=== PATIENT | female | born 1990 | race Caucasian/White ===

== ENCOUNTER 2016-07-17 | Emergency (ER) | payer MEDICAID | END 2016-07-17 01:57 | disposition home or self-care (01) ==

== ENCOUNTER 2021-12-09 11:41 | Outpatient (CLI) | payer MEDICAID | END 2021-12-09 11:42 | disposition home or self-care (01) | LOC: LAB 11:41 | PROVIDERS: ATTEND Nurse Practitioner Obstetrics & Gynecology | DX: N91.2 Amenorrhea, unspecified (principal) | CPT/HCPCS: 36415; 84702 ==

== ENCOUNTER 2021-12-15 18:06 | Outpatient (CLI) | payer MEDICAID | END 2021-12-15 18:07 | disposition home or self-care (01) | LOC: LAB 18:06 | PROVIDERS: ATTEND Nurse Practitioner Obstetrics & Gynecology | DX: N91.2 Amenorrhea, unspecified (principal) | CPT/HCPCS: 36415; 84702 ==

== ENCOUNTER 2021-12-18 17:23 | Outpatient (CLI) | payer MEDICAID, OTHER | END 2021-12-18 17:24 | disposition home or self-care (01) | LOC: LAB 17:23 | PROVIDERS: ATTEND Nurse Practitioner Obstetrics & Gynecology | DX: O02.1 Missed abortion (principal) | CPT/HCPCS: 36415; 84702; 86850; 86900; 86901 ==

== ENCOUNTER 2022-01-28 14:58 | Outpatient (CLI) | payer OTHER | END 2022-01-28 14:59 | disposition home or self-care (01) | LOC: LAB 14:58 | PROVIDERS: ATTEND Nurse Practitioner Obstetrics & Gynecology | DX: O02.1 Missed abortion (principal) | CPT/HCPCS: 36415; 84702 ==

== ENCOUNTER 2022-08-05 12:15 | Outpatient (CLI) | payer OTHER | END 2022-08-05 12:16 | disposition home or self-care (01) | LOC: LAB 12:15 | PROVIDERS: ATTEND Nurse Practitioner Obstetrics & Gynecology | DX: N96 Recurrent pregnancy loss (principal) | CPT/HCPCS: 36415; 84702 ==

== ENCOUNTER 2022-08-08 15:45 | Outpatient (CLI) | payer OTHER | END 2022-08-08 15:46 | disposition home or self-care (01) | LOC: LAB 15:45 | PROVIDERS: ATTEND Nurse Practitioner Obstetrics & Gynecology | DX: N96 Recurrent pregnancy loss (principal) | CPT/HCPCS: 36415; 84702 ==

== ENCOUNTER 2022-08-24 11:33 | Outpatient (CLI) | payer OTHER ==
[2022-08-25 06:10] LABS: HBsAG SCREEN Negative (Negative)
[2022-08-25 07:09] LABS: RPR Non Reactive (Non Reactive); VARICELLA-ZOSTER AB IGG 1233 index (Immune >165)
[2022-08-26 00:07] LABS: HCV AB Non Reactive (Non Reactive); HIV SCREEN 4TH GENERATION Non Reactive (Non Reactive)
== END 2022-08-24 11:34 | disposition home or self-care (01) ==
LOC: LAB 11:33
PROVIDERS: ATTEND Nurse Practitioner Obstetrics & Gynecology
DX: Z36.89 Encounter for other specified antenatal screening (principal)
CPT/HCPCS: 36415; 85025; 86592; 86762; 86787; 86803; 86850; 86900; 86901; 87340; 87389

== ENCOUNTER 2022-08-27 12:05 | Outpatient (CLI) | payer OTHER ==
[2022-08-27 12:16] LABS: BASOPHILS % (AUTO) 0.5 %; EOSINOPHILS # (AUTO) 0.1 10^3/uL (0.0-0.7); EOSINOPHILS % (AUTO) 0.9 %; HCT - HEMATOCRIT 40.3 % (37.0-47.0); HGB - HEMOGLOBIN 13.5 g/dL (12.0-16.0); LYMPHOCYTES # (AUTO) 1.8 10^3/uL (1.5-3.5); LYMPHOCYTES % (AUTO) 27.1 %; MEAN CORPUSCULAR HEMOGLOBIN 31.2 pg (27.0-31.0); MEAN CORPUSCULAR HGB CONC 33.5 g/dL (32.0-36.0); MEAN CORPUSCULAR VOLUME 93.1 fL (81.0-99.0); MEAN PLATELET VOLUME 9.6 fL (7.9-10.8); MONOCYTES # (AUTO) 0.4 10^3/uL (0.0-1.0); MONOCYTES % (AUTO) 6.7 %; NEUTROPHILS # (AUTO) 4.2 10^3/uL (1.5-6.6); NEUTROPHILS % (AUTO) 64.3 %; PLT - PLATELET COUNT 251 10^3/uL (130-450); RED BLOOD COUNT 4.33 10^6/uL (4.20-5.40); RED CELL DISTRIBUTION WIDTH 11.9 % (12.0-15.0); WHITE BLOOD COUNT 6.5 x10^3/uL (4.8-10.8)
== END 2022-08-27 12:06 | disposition home or self-care (01) ==
LOC: LAB 12:05
PROVIDERS: ATTEND Nurse Practitioner Obstetrics & Gynecology
DX: Z36.89 Encounter for other specified antenatal screening (principal)
CPT/HCPCS: 36415; 85025; 86850; 86900; 86901

== ENCOUNTER 2022-09-21 16:48 | Outpatient (CLI) | payer OTHER | END 2022-09-21 16:49 | disposition home or self-care (01) | LOC: LAB 16:48 | PROVIDERS: ATTEND Nurse Practitioner Obstetrics & Gynecology | DX: Z13.79 Encounter for other screening for genetic and chromosomal anomalies (principal) | CPT/HCPCS: 36415 ==

== ENCOUNTER 2022-11-11 20:56 | Outpatient (CLI) | payer OTHER ==
--- NOTE | 2022-11-12 10:44 | Ultrasound Report ---
PROCEDURE: OB Detailed Eval INDICATIONS: SUPERVISION OF OUTSIDE/PRIOR DATING DATA: Last menstrual period (LMP): 06/24/2022. LMP-based estimated date of delivery (ARNAV): 03/31/2023. First dating scan (date and location): 08/24/2022. Estimated date of delivery (ARNAV) from first dating scan: 04/04/2023. The below data below was generated using the ultrasound ARNAV of 04/04/2023 TECHNIQUE: Real-time scanning was performed of the fetus, with image documentation and biometric measurements. Endovaginal scanning: Not performed COMPARISON: None. FINDINGS: General: A single living intrauterine gestation is present. Presentation: Vertex Placenta: Placental position is posterior, without previa. Amniotic fluid index: 11.2 cm, within normal limits for gestational age. heart rate: 143 beats per minute. Maternal cervical canal is closed. biometrics: Biparietal diameter: 4.37 cm, 19 weeks 2 days Head circumference: 16.98 cm, 19 weeks 4 days Abdominal circumference: 14.66 cm, 20 weeks Femur length: 3.0 cm, 19 weeks 3 days Estimated gestational age from initial scan: 19 weeks 3 days Composite gestational age from present scan: 19 weeks 3 days Estimated weight and percentile: 305 g, 59th percentile Measurement variability in biometric dating: +/- 10 days from 12-20 weeks gestation, +/- 2 weeks from 20-30 weeks gestation, +/- 3 weeks at 30 weeks gestation or later. Anatomic survey: Neuro: Ventricles are normal at less than 10 mm. Cisterna magna is normal at 3-11 mm. Cerebellum i s normal in size and morphology. Nuchal skin fold: Normal at less than 6 mm between 14 and 20 weeks gestational age. Face: Nose and lips, facial profile are normal. Spine: No evidence for spina bifida. Heart: Not well visualized. Diaphragm: Diaphragm is intact. Stomach: Left-sided stomach is present. Kidneys: No hydronephrosis. Normal is less than 5 mm in 2nd trimester, less than 7 mm in 3rd trimester. Cord: 3 vessel cord has orthotopic insertion. Bladder: Normal in size. Extremities: All 4 extremities are visualized. IMPRESSION: Single living intrauterine at 19 weeks 3 days, ARNAV of 04/04/2023. Estimated weight is 305 g, 59th percentile. The 4-channel view and outflow tract of the heart are not well demonstrated. Consider repeat examinat ion. Otherwise, normal anatomy survey. Reviewed by: Felipe Hamilton on 11/12/2022 10:43 AM PDT Approved by: Felipe Hamilton on 11/12/2022 10:43 AM PDT Station ID: [id number]
== END 2022-11-11 20:57 | disposition home or self-care (01) ==
LOC: DI 20:56
PROVIDERS: ATTEND Nurse Practitioner Obstetrics & Gynecology
DX: Z34.02 Encounter for supervision of normal first pregnancy, second trimester (principal); Z36.89 Encounter for other specified antenatal screening

== ENCOUNTER 2022-11-19 12:22 | Outpatient (CLI) | payer OTHER ==
--- NOTE | 2022-11-19 14:39 | Ultrasound Report ---
PROCEDURE: OB F/U or Repeat INDICATIONS: SUPERVISION OF OUTSIDE/PRIOR DATING DATA: Last menstrual period (LMP): 06/24/2022. LMP-based estimated date of delivery (ARNAV): 03/31/2023. First dating scan (date and location): 08/24/2022. Estimated date of delivery (ARNAV) from first dating scan: 04/04/2023. The below data below was generated using the ultrasound ARNAV of 04/04/2023 TECHNIQUE: Real-time scanning was performed of the fetus, with image documentation. Endovaginal scanning: Not performed. COMPARISON: OB ultrasound 11/11/2022. FINDINGS: General: A single living intrauterine gestation is present. Presentation: Breech variable Placenta: Placental position is posterior, without previa. Amniotic fluid index: 10.4 cm, within normal limits for gestational age. Largest pocket 2.8 cm. heart rate: 135 beats per minute. Maternal cervical canal: 2.9 cm long; normal length is 2.5 cm or more. Estimated gestational age from prior datin weeks 4 days Other: Four-chamber view of the heart and outflow tracts are normal in appearance. IMPRESSION: 1. Benson living intrauterine at 20 weeks 4 days based on prior dating. 2. Normal placenta and amniotic fluid. 3. Normal heart views. Reviewed by: Mina Delgado MD on 11/19/2022 2:38 PM PDT Approved by: Mina Delgado MD on 11/19/2022 2:38 PM PDT Station ID: [id number]
== END 2022-11-19 12:23 | disposition home or self-care (01) ==
LOC: DI 12:22
PROVIDERS: ATTEND Nurse Practitioner Obstetrics & Gynecology
DX: Z34.90 Encounter for supervision of normal pregnancy, unspecified, unspecified trimester (principal); Z36.89 Encounter for other specified antenatal screening

== ENCOUNTER 2022-12-30 13:57 | Outpatient (CLI) | payer OTHER ==
[2022-12-30 15:05] LABS: HCT - HEMATOCRIT 36.2 % (37.0-47.0); HGB - HEMOGLOBIN 11.9 g/dL (12.0-16.0); MEAN CORPUSCULAR HEMOGLOBIN 30.4 pg (27.0-31.0); MEAN CORPUSCULAR HGB CONC 32.9 g/dL (32.0-36.0); MEAN CORPUSCULAR VOLUME 92.6 fL (81.0-99.0); MEAN PLATELET VOLUME 8.9 fL (7.9-10.8); RED BLOOD COUNT 3.91 10^6/uL (4.20-5.40); RED CELL DISTRIBUTION WIDTH 13.2 % (12.0-15.0); WHITE BLOOD COUNT 6.6 x10^3/uL (4.8-10.8)
== END 2022-12-30 13:58 | disposition home or self-care (01) ==
LOC: LAB 13:57
PROVIDERS: ATTEND Nurse Practitioner Obstetrics & Gynecology
DX: Z36.9 Encounter for antenatal screening, unspecified (principal)
CPT/HCPCS: 36415; 82950; 85027

== ENCOUNTER 2023-04-01 14:19 | Inpatient (IN) | payer OTHER ==
[2023-04-01] MEDS ORDERED: AMPICILLIN 2 GM in SODIUM CHLORIDE 0.9% MINIBAG 100 ML IV ONE (14:39)
[2023-04-01] MEDS ORDERED: LACTATED RINGERS 500 ML IV ONE (14:39)
[2023-04-01] MEDS ORDERED: miSOPROStoL 200 MCG TABLET BC PRN (14:39)
[2023-04-01] MEDS ORDERED: OXYTOCIN 10 UNIT/ML VIAL IM PRN (14:39)
[2023-04-01] MEDS ORDERED: TERBUTALINE 1 MG/ML VIAL SUBQ PRN (14:39)
[2023-04-01] MEDS ORDERED: CARBOPROST TROMETHAMINE 250 MCG/ML AMP IM PRN (14:39)
[2023-04-01] MEDS ORDERED: METHYLERGONOVINE 0.2 MG/ML VIAL IM PRN (14:39)
[2023-04-01] MEDS ORDERED: LABETALOL 20 MG/4 ML SYRINGE IVP PRN ×3 (14:39)
[2023-04-01] MEDS ORDERED: LACTATED RINGERS 1,000 ML IV PRN (14:39)
[2023-04-01] MEDS ORDERED: TRANEXAMIC ACID IN NACL 1,000 MG/100 ML BAG IV PRN (14:39)
[2023-04-01] MEDS ORDERED: NIFEdipine 10 MG CAPSULE PO PRN (14:39)
[2023-04-01] MEDS ORDERED: hydrALAZINE INJ 20 MG/ML VIAL IVP PRN ×2 (14:39)
[2023-04-01] MEDS ORDERED: miSOPROStoL 200 MCG TABLET PR PRN (14:39)
[2023-04-01] MEDS ORDERED: SODIUM CHLORIDE FLUSH 0.9% 10 ML SYRINGE IVP PRN (14:39)
[2023-04-01] MEDS: LACTATED RINGERS 1,000 ML IV SCH (14:49)
[2023-04-01] MEDS ORDERED: AMPICILLIN 2 GM VIAL IV ONE (14:57)
[2023-04-01 15:06] LABS: BASOPHILS % (AUTO) 0.3 %; EOSINOPHILS % (AUTO) 0.2 %; HCT - HEMATOCRIT 43.7 % (37.0-47.0); HGB - HEMOGLOBIN 14.4 g/dL (12.0-16.0); LYMPHOCYTES # (AUTO) 1.5 10^3/uL (1.5-3.5); LYMPHOCYTES % (AUTO) 15.3 %; MEAN CORPUSCULAR HEMOGLOBIN 29.9 pg (27.0-31.0); MEAN CORPUSCULAR VOLUME 90.9 fL (81.0-99.0); MEAN PLATELET VOLUME 9.4 fL (7.9-10.8); MONOCYTES # (AUTO) 0.5 10^3/uL (0.0-1.0); MONOCYTES % (AUTO) 4.8 %; NEUTROPHILS # (AUTO) 7.9 10^3/uL (1.5-6.6); NEUTROPHILS % (AUTO) 78.7 %; PLT - PLATELET COUNT 253 10^3/uL (130-450); RED BLOOD COUNT 4.81 10^6/uL (4.20-5.40); RED CELL DISTRIBUTION WIDTH 13.7 % (12.0-15.0)
--- NOTE | 2023-04-01 15:40 | ANESTHESIA ---
Pre-Anesthesia VS, & Labs - Diagnosis IUP - Procedure labor epidural Vital Signs: Temp Pulse Resp BP Pulse Ox O2 Flow Rate 36.8 C 89 17 138/74 H 04/01/23 15:07 04/01/23 15:07 04/01/23 15:07 04/01/23 15:07 Height: 5 ft 6 in Weight (kg): 78.018 kg Body Mass Index: 27.7 BMI Classification: Overweight - Is Patient ?: Yes - Lab Results Current Lab Results: Laboratory Tests 04/01/23 14:45: WBC 10.0, RBC 4.81, Hgb 14.4, Hct 43.7, MCV 90.9, MCH 29.9, MCHC 33.0, RDW 13.7, Plt Count 253, MPV 9.4, Neut # (Auto) 7.9 H, Lymph # (Auto) 1.5, [place] # (Auto) 0.5, Eos # (Auto) 0.0, Baso # (Auto) 0.0, Absolute Nucleated RBC 0.00, Nucleated RBC % 0.0 Lab results reviewed: Yes Fish Bones: 04/01/23 14:45 Home Medications and Allergies Active Medications Carboprost Tromethamine (Carboprost Tromethamine 250 Mcg/Ml Amp) 250 mcg IM .ONCE PRN PRN Reason: Hemorrhage Fentanyl (Fentanyl 100 Mcg/2 Ml Vial) 50 mcg IVP Q1H PRN PRN Reason: Severe Pain (score 7-10) Hydralazine HCl (Hydralazine Inj 20 Mg/Ml Vial) 5 - 10 mg IVP Q20M PRN; Protocol PRN Reason: SBP> or= 160 OR DBP> or= 110 Hydralazine HCl (Hydralazine Inj 20 Mg/Ml Vial) 10 mg IVP .ONCE PRN; Protocol PRN Reason: SBP> or= 160 OR DBP> or= 110 Lactated Ringer's (Lr) 500 mls @ 999 mls/hr IV PRN PRN PRN Reason: distress Oxytocin/Sodium Chloride (Pitocin/Sodium Chloride) 500 mls @ 999 mls/hr IV PRN PRN; Protocol PRN Reason: POST- HEMORR PREVENTION Tranexamic Acid (Tranexamic 1,000 Mg/100ml-Nacl) 1,000 mg in 100 mls @ 600 mls/hr IV Q30M PRN PRN Reason: EBL >1200mL and within 3hr Lactated Ringer's (Lr) 1,000 mls @ 125 mls/hr IV .Q8H [facility] Last Admin: 04/01/23 14:49 Dose: 125 mls/hr Ampicillin Sodium 1 gm/ Sodium (Chloride) 100 mls @ 200 mls/hr IV Q4H [facility] Labetalol HCl (Labetalol 20 Mg/4 Ml Syringe) 20 - 80 mg IVP Q10M PRN; Protocol PRN Reason: SBP> or= 160 OR DBP> or= 110 Labetalol HCl (Labetalol 20 Mg/4 Ml Syringe) 20 mg IVP .ONCE PRN; Protocol PRN Reason: SBP> or= 160 OR DBP> or= 110 Labetalol HCl (Labetalol 20 Mg/4 Ml Syringe) 20 - 40 mg IVP Q10M PRN; Protocol PRN Reason: SBP> or= 160 OR DBP> or= 110 Lidocaine HCl (Lidocaine 1% 20 Ml Mdv) 20 ml ID .ONCE PRN PRN Reason: PERINEAL REPAIR Stop: 04/04/23 14:39 Methylergonovine Maleate (Methylergonovine 0.2 Mg/Ml Vial) 0.2 mg IM .ONCE PRN PRN Reason: Hemorrhage Misoprostol (Misoprostol 200 Mcg Tablet) 600 mcg BC .ONCE PRN PRN Reason: Hemorrhage Misoprostol (Misoprostol 200 Mcg Tablet) 800 mcg [place] .ONCE PRN PRN Reason: Hemorrhage Nifedipine (Nifedipine 10 Mg Capsule) 10 - 20 mg PO Q20M PRN; Protocol PRN Reason: SBP> or= 160 OR DBP> or= 110 Oxytocin (Oxytocin 10 Unit/Ml Vial) 10 unit IM .ONCE PRN PRN Reason: Step One if no IV access. Sodium Chloride (Sodium Chloride Flush 0.9% 10 Ml Syringe) 10 ml IVP PRN PRN PRN Reason: NEEDED PER PROVIDER ORDERS Sodium Chloride (Sodium Chloride Flush 0.9% 10 Ml Syringe) 10 ml IVP Q8H RISHI Sodium Chloride (Sodium Chloride Flush 0.9% 10 Ml Syringe) 10 ml IVP PRN PRN PRN Reason: NEEDED PER PROVIDER ORDERS Terbutaline Sulfate (Terbutaline 1 Mg/Ml Vial) 0.25 mg SUBQ .ONCE PRN PRN Reason: Tachystole Allergies/Adverse Reactions: Allergies Allergy/AdvReac Type Severity Reaction Status Date / Time No Known Drug Allergies Allergy Verified 07/17/16 01:12 Anes History & Medical History - Anesthetic History Anesthesia Complications: reports: No previous complications Family history of Anesthesia Complications: Denies Family history of Malignant Hyperthermia: Denies - Medical History Cardiovascular: reports: None Pulmonary: reports: None Gastrointestinal: reports: GERD (regular tums use w/ third trimester) Urinary: reports: None Neuro: reports: None Musculoskeletal: reports: None Endocrine/Autoimmune: reports: None Blood Disorders: reports: None Skin: reports: None Smoking Status: Never smoker Psychosocial: reports: No issues indicated Exam General: Alert, Oriented x3, Cooperative Dental: WNL Mouth Openin Fingerbreadth Neck Mobility: Normal Mallampati classification: II Thyromental Distance: 4-6 cm Respiratory: Lungs clear Cardiovascular: Regular rate Plan Anesthesia Type: Epidural Consent for Procedure(s) Verified and Reviewed: Yes Code Status: Attempt Resuscitation ASA classification: 2-Mild systemic disease Is this case an emergency?: No
--- NOTE | 2023-04-01 16:39 | HISTORY & PHYSICAL EXAMINATION ---
Admit History - Visit Reason Visit Reason: Contractions - : 4 Parity: 0 Premature: 0 Ectopic: 0 : 3 Care: positive: [facility] Risk/History: positive: None Complications This : positive: None Smoking Status: Never smoker - Mother's Labs Mother's Blood Type: positive: O Mother's RH: positive: Positive GBS: positive: Group B Strep Positive Rubella Status: positive: Immune - HPI Diagnosis/Indication for NST: Other Current EDU 03/31/23 Gestation 40 Weeks and 1 Days 4 Para 0 Vital Signs Temperature 36.8 C 04/01/23 15:07 Heart Rate 89 04/01/23 15:07 Respiratory Rate 17 04/01/23 15:07 Blood Pressure 138/74 H 04/01/23 15:07 Temperature 36.8 C 04/01/23 15:09 Heart Rate 89 04/01/23 15:07 Respiratory Rate 17 04/01/23 15:07 Blood Pressure 138/74 H 04/01/23 15:07 O2 Saturation If not protocol: Oxygen Flow, liters/minute - NST Procedure NST Procedure Start Date 04/01/23 Start Time 14:32 Stop Time 15:02 Vibroacoustic Stimulation Used No - Results and Plan Findings/Impression: NST reactive. FHR baseline 130s, moderate variability, + accels, no decels Contractions palpate strong every 4-6 minutes with soft resting tone Meds/Allgy - Allergies Allergies/Adverse Reactions: Allergies Allergy/AdvReac Type Severity Reaction Status Date / Time No Known Drug Allergies Allergy Verified 07/17/16 01:12 Review of Systems - Constitutional Constitutional: denies: Fatigue, Fever, Chills - Eyes Eyes: denies: Blurred vision, Spots in vision, Dipolpia - Cardiovascular Cariovascular: denies: Irregular heart rate, Palpitations, Chest pain, Edema - Respiratory Respiratory: denies: Cough, Wheezing, SOB at rest - Gastrointestinal Gastrointestinal: denies: Constipation, Diarrhea, Nausea, Vomiting - Genitourinary Genitourinary: denies: Dysuria - Musculoskeletal Musculoskeletal: denies: Back pain - Integumentary Integumentary: denies: Rash, Pruritis - Neurological Neurological: denies: Headache - Psychiatric Psychiatric: denies: Depression, Anxiety Physical - Abdominal Exam Vital Signs: Temp Pulse Resp BP Pulse Ox O2 Flow Rate 36.8 C 89 17 138/74 H 04/01/23 15:09 04/01/23 15:07 04/01/23 15:07 04/01/23 15:07 Contraction Frequency (min/apart): 4-6 Contraction Intensity: positive: Strong Uterine Resting Tone: positive: Soft - Monitoring Heart Rate Baseline: 130 Strip Review: positive: Category I - Presentation Presentation: positive: Vertex - Vaginal Exam Membranes: positive: Membranes intact Dilation (in cm): 6-7 Effacement (%): 100 Station: positive: -1 - Speculum Exam Speculum Exam Performed: positive: No Plan for Labor - Plan For Labor I expect patient to be DC'd or transferred within 96 hours.: Yes Plan for Labor: HPI: Bridget is a 32yo @ 40.1wks gestation by LMP c/w 8.1wk U/S who presents to [facility] with c/o contractions. She reports her contractions started this morning around 0530 and have increased in frequency and intensity since that time. Upon arrival her cervix is 6-7/100/-1 and vertex with intact membranes. FHR Category I pattern with 130 bpm baseline and contractions palpate strong every 4-6 minutes with soft resting tone She has been a patient of [facility] for the duration of her which has remained uncomplicated. She is noted to be GBS positive. She will be admitted to [facility] for expectant management. She is supported by her Enrique. 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 SAB x 1. TAB x 2. Last pap 07/2021-WNL, no hx abnormal. Denies history of gonorrhea, chlamydia, genital herpes, oral herpes or any other STI. Sexual partner does NOT have HSV (oral or genital). Medical Hx: No significant Surgical Hx: None Social Hx: Monogamous with male partner. Stopped drinking alcohol due to . Denies current use of tobacco, marijuana or other recreational drugs. Former smoker - quit 7 years ago. Reports that she is safe in current relationship. Family Hx: Denies family history of congenital anomalies, Cystic Fibrosis or chromosomal abnormalities. HTN - mother, MGF; Diabetes - mother; Heat disease - PGF Allergies: NKDA Medications: PNV course: O positive, antibody negative Rubella immune; varicella immune Hep B neg, Hep C neg HIV non-reactive; RPR non-reactive Genetic screening - negative FAS WNL with the exception of incomplete visualization of cardiac outflow tracts. Posterior placenta, no previa. Size c/w dating (EFW 59%tile). 3VC. F/u ultrasound: Normal cardiac views Glucola 125 Covid vaccine: x 3 Influenza vaccine - 3rd trimester Tdap vaccine - 3rd trimester RSV vaccine - 3rd trimester GBS POSITIVE Physical exam: Normocephalic, atraumatic Heart RRR w/o M/G/R Lungs CTAB Abdomen gravid, soft, nontender. EFW 3100g FHR baseline 130s, moderate variability, + accels, no decels Contractions palpate strong every 4-6 minutes with soft resting tone SVE 6-7/100/-1, vertex. Intact membranes Bilateral LE's trace edema. Mood is good. Assessment: 32yo @40.1wks gestation by LMP c/w 8.1wk U/S Active labor FHR Category I GBS positive Plan: Admit to [facility] for expectant management. Intermittent heart rate auscultation. Initial Ampicillin for GBS prophylaxis per protocol. Jacuzzi PRN. Nitrous oxide PRN. Epidural per maternal request. Anticipate .
[2023-04-01] MEDS: OXYTOCIN/SODIUM CHLORIDE 500 ML IV PRN ×2 (17:58→18:37)
[2023-04-01] MEDS: lidocaine 1% 20 ML MDV ID PRN ×2 (18:13→18:46)
[2023-04-01] MEDS: fentaNYL 100 MCG/2 ML VIAL IVP PRN ×2 (18:32→19:05)
[2023-04-01] MEDS: SODIUM CHLORIDE FLUSH 0.9% 10 ML SYRINGE IVP PRN ×2 (18:37→19:08)
[2023-04-01] MEDS ORDERED: AMPICILLIN 1 GM in SODIUM CHLORIDE 0.9% MINIBAG 100 ML IV SCH (19:00)
[2023-04-01] MEDS ORDERED: WITCH HAZEL/GLYCERIN 1 PAD TOP PRN (19:32)
[2023-04-01] MEDS ORDERED: HYDROCORTISONE 1% CREAM 28 GM TUBE PR PRN (19:32)
--- NOTE | 2023-04-01 19:57 | DELIVERY NOTE ---
Delivery Note - Labor Labor: positive: Spontaneous - Delivery Method Delivery Method: positive: Spontaneous vaginal delivery - Presentation Presentation: positive: Vertex, ROT - right occiput transverse - Nuchal Cord Nuchal Cord: positive: None - Amniotic Fluid Description Amniotic Fluid Description: positive: Clear - Episiotomy Type Episiotomy Type: positive: None - Laceration Laceration: positive: 1st degree, Labial, Perineal, Vaginal - Suture Suture Type: positive: Vicryl Suture Size: positive: 2-0, 3-0, 4-0 - Delivery Outcome Delivery Outcome: positive: Livebirth - : positive: Placed in direct skin contact with mother, Bulb syringe, Stimulated, Warmed, [place] used sex: positive: Female - Cord Cord: positive: 3 vessels - Placenta Placenta: positive: Intact, Spontaneous - Estimated Blood Loss Estimated Blood Loss (in cc): 802 (QBL) - Post Delivery Events Post Delivery Events: positive: No post delivery events - Delivery Comments (Free Text/Narrative) Delivery Comments (Free Text/Narrative): Labor: This 32yo @ 40.1wks gestation by LMP c/w 8.1wk U/S presented to [facility] on 04/01/2023 in active labor. Cervix was 6-7/100/-1 and vertex with intact membranes. FHR demonstrated a Category I pattern throughout labor. Normal labor course. Pt progressed spontaneously to c/c/+1 and pushing at 1714. SROM occurred at 1727 and was noted to be a moderate amount of clear fluid. : Normal SVB of viable female on 04/01/2023 @ 1742. No nuchal cord. The was placed on maternal abdomen, stimulated, dried, and placed skin to skin. 's were 9/9 at 1 and 5 minutes respectively. The umbilical cord was allowed to stop pulsating at which time it was doubly clamped by CNM and cut by FOB. Cord blood was obtained. 3VC. Fundal massage and gentle cord traction applied for active management of the third stage. Placenta delivered spontaneously and intact at 1756. Pitocin initiated via IV for hemostasis. Fourth stage: There was noted to be increased rate of bleeding and 600mcg cytotec as administered [place], 0.2mg methergine was administered IM, and TXA was initiated. QBL 802mL. Following medication administration the uterine fundus was firm and there was additional increased rate of bleeding. The perineum, vagina, and cervix were inspected and found to have a 1st degree vaginal laceration which was repaired using a 2-[address]- 1 needle, a 1st degree perineal laceration which was repaired using a 3-[address]-1 needle, and a 1st degree left labial laceration which was repaired using a 4-0 vicryl on an SH needle. All repairs were done in standard fashion and under sterile conditions. Vaginal and rectal exams following repair were performed. Tissues well approximated. initiated. Family bonding well. Both mother and baby were left in stable condition.
[2023-04-01] MEDS: ACETAMINOPHEN 500 MG TABLET PO SCH (19:58)
[2023-04-01] MEDS: DOCUSATE SODIUM 100 MG CAPSULE PO SCH (19:58)
[2023-04-01] MEDS: IBUPROFEN 800 MG TABLET PO SCH (19:58)
[2023-04-01] MEDS: SODIUM CHLORIDE FLUSH 0.9% 10 ML SYRINGE IVP SCH (19:59)
[2023-04-02] MEDS: LACTATED RINGERS 1,000 ML IV SCH (02:24)
[2023-04-02] MEDS: SODIUM CHLORIDE FLUSH 0.9% 10 ML SYRINGE IVP SCH (02:25)
[2023-04-02] MEDS: IBUPROFEN 800 MG TABLET PO SCH ×3 (02:37→16:34)
[2023-04-02] MEDS: ACETAMINOPHEN 500 MG TABLET PO SCH ×2 (06:07→14:23)
[2023-04-02] MEDS: DOCUSATE SODIUM 100 MG CAPSULE PO SCH ×2 (09:15→20:14)
--- NOTE | 2023-04-02 12:22 | Discharge Plan ---
Discharge Plan Problem Reviewed?: Yes Disposition: Home, Self Care Condition: Good Diet: Regular Activity Restrictions: No Restrictions Weight Bearing: Full Weight Instruction Topics: Vaginal After No Smoking: If you smoke, Please STOP! Call for help. Follow-up with: Kendra Perdomo CNM, ARNP [Primary Care Provider] - 1 Week (1 week phone visit with Kendra Perdomo CNM/MERCED on 04/08/2023 @ 1300)
--- NOTE | 2023-04-02 12:31 | DISCHARGE SUMMARY ---
Discharge Summary Condition at Discharge: Good Discharge Disposition: 01 Home, Self Care - HOSPITAL COURSE Hospital Course: Date of Admission: 04/01/2023 Date of Discharge: 04/02/2023 Diagnosis on Admission: 1. 32yo @ 40.1wks gestation by LMP c/w 8.1wk U/S 2. Active labor 3. FHR Category I 4. GBS positive Diagnosis on Discharge: 1. 32yo PPD#1 s/p TSVB viable female infant 2. 3. Normal recovery Brief History: She is a patient of [facility] who presented on 04/01/2023 in active labor. She was found to contraction every 4-6 minutes with soft resting tone and her cervix was 6-7/100/-1 and vertex with intact membranes. She progres sed spontaneously to deliver a viable female infant on 04/01/2023 @ 1714. She did have increased vaginal bleeding with a total QBL of 802mL however her bleeding responded well to medication management and has remained minimal since delivery. 1st degree perineal, vaginal, and left labial lacerations were repaired in standard fashion and under sterile conditions. Apgars were 9/9 at 1 and 5 minutes respectively. She received 1 loading dose of Ampicillin for GBS prophylaxis and delivered 3 hours later. Her membranes were ruptured for only 15 minutes. She has been doing well in her course. She is ambulating and tolerating a regular diet. She is urinating without difficulty and her lochia is normal. Her pain is well controlled with oral medications. She is without difficulty and she is bonding well with her baby. She will be discharged home today on day #1 with instructions to continue taking her vitamin while and to continue taking ibuprofen and tylenol over the counter as needed for pain management. She intends to follow up with myself at [facility] in 1 week for routine visit or sooner if needed. She has been given precautions to call if she has any worsening fevers, chills, abdominal pain, increased vaginal bleeding or foul smelling vaginal lochia. Physical Exam: Normocephalic, atraumatic. Heart RRR w/o M/G/R, lungs CTAB, abdomen soft and nontender with fundus firm at U-1, perineum intact, repair without edema, light lochia rubra, bilateral LE's no edema. Mood is good. - ALLERGIES Allergies/Adverse Reactions: Allergies Allergy/AdvReac Type Severity Reaction Status Date / Time No Known Drug Allergies Allergy Verified 07/17/16 01:12 - LABS Result Diagrams: 04/01/23 14:45
[2023-04-02 20:01] VITALS: O2SAT 100
[2023-04-02 20:19] VITALS: BP 114/65
--- NOTE | 2023-04-02 21:03 | Labor Flowsheet ---
Labor Flowsheet Datetime Report Generated by CPN: 04/02/2023 21:03 Datetime: 04/02/2023 20:13 VITAL SIGNS NBP Sys/Marion/Mean (mmHg): 114 : 65 : 75 Pulse: 93 Datetime: 04/02/2023 14:09 SpO2 (%): 97 Datetime: 04/01/2023 19:10 Medication Comments: TXA 1 Gram IV Datetime: 04/01/2023 19:05 Analgesics/Sedatives: Fentanyl (mcg) @ 50 Datetime: 04/01/2023 17:58 MEDICATIONS Pitocin (milliunits): Started @ 999 Datetime: 04/01/2023 17:52 Membranes Ruptured Date/Time: 04/01/2023 17:27 Datetime: 04/01/2023 17:45 Stage of : Recovery Datetime: 04/01/2023 17:41 ASSESSMENT A Monitor Mode: Doppler Comments: Delivery imminent. FHR 110's Datetime: 04/01/2023 17:27 Membrane Status: Ruptured Membranes Rupture Method: Spontaneous Amniotic Fluid Color: Clear Amniotic Fluid Amount: Moderate Amniotic Fluid Odor: None Datetime: 04/01/2023 17:24 FHR Baseline Rate : 135 Datetime: 04/01/2023 17:14 UTERINE ACTIVITY Monitor Mode: Palpation Frequency (min): 3 Quality: Strong Duration (sec): 70 Resting Tone (Palpate): Relaxed Variability: Moderate 6-25 bpm Accelerations: None Decelerations: None Category: Category I VAGINAL EXAM Dilatation (cm): 10.0 Station: 1 Exam by: DALILA Perdomo SOLVENT RECOVERER STAGE 2 Pushing: Coached on Pushing; Urge to Push Datetime: 04/01/2023 17:03 COMMUNICATION Communication: Provider at Bedside Communication Comments: switching to intermittant auscultation via doppler Datetime: 04/01/2023 16:54 LaborFlag: Labor Datetime: 04/01/2023 16:52 Pattern: Normal: <= 5 Contractions in 10 Minutes Datetime: 04/01/2023 16:37 Patient Care Comments: Out of jaccuzzi, sensation of needing to have a BM with each contraction Datetime: 04/01/2023 16:09 Contraction Comments: not monitored in jaccuzzi. Spouse at tubside. This RN continuously available in room. Patient audible pain q 2-4 minutes FHR Baseline Changes: No Baseline Change PAIN Pain Scale: 7 PATIENT CARE Comfort Measures: Coaching; Hot Shower/Tub/Spa; Family Support Datetime: 04/01/2023 16:00 Monitor Interventions for UA: [place] Adjusted Monitor Interventions for FHR: Ultrasound Adjusted Datetime: 04/01/2023 15:09 Respirations: 17 Temperature (C): 36.8 Temperature Route: Oral Datetime: 04/01/2023 14:49 Antibiotics: Start Antibiotics; Ampicillin IV 2 Gm Datetime: 04/01/2023 14:20 Effacement (%): 80
== END 2023-04-02 20:45 | disposition home or self-care (01) | DRG 807 ==
LOC: WFO 14:19 → FBP 14:20 → WFO 14:38 → FBP 14:39
PROVIDERS: ADMIT Nurse Practitioner Obstetrics & Gynecology; ATTEND Nurse Practitioner Obstetrics & Gynecology
PROC: 10E0XZZ Delivery of Products of Conception, External Approach (ICD-10-PCS; principal; 2023-04-01)
PROC: 0HQ9XZZ Repair Perineum Skin, External Approach (ICD-10-PCS; 2023-04-01)
DX: O99.824 Streptococcus B carrier state complicating childbirth (principal); Z37.0 Single live birth; O70.0 First degree perineal laceration during delivery; O99.62 Diseases of the digestive system complicating childbirth; Z3A.40 40 weeks gestation of pregnancy; K21.9 Gastro-esophageal reflux disease without esophagitis; Z87.891 Personal history of nicotine dependence
CPT/HCPCS: 59409; 85025; 86850; 86900; 86901; A9270; J2210; J7120; 99215